=== PATIENT | female | born 1995 | race Caucasian/White ===

== ENCOUNTER 2023-11-22 20:28 | Emergency (ER) | payer OTHER, SELFPAY ==
[2023-11-22 20:34] VITALS: BP 120/75; PULSE 66; RESP 18; TEMP 36.7; O2SAT 99; BMI 23.1
--- NOTE | 2023-11-22 21:53 | ED_ITS ---
HPI - General Adult General Chief complaint: General Medical Stated complaint: Hit head at work, vision changes Time Seen by Provider: 11/22/23 21:50 Source: patient Mode of arrival: ambulatory Limitations: no limitations History of Present Illness ED Provider: Brinda Cordova PA-C HPI narrative: 27-year-old female presents for evaluation after hitting her head on a walk-in cooler earlier today. States that she hit her head around 1330 this afternoon, denies loss of consciousness. Then about 6-7 hours later was having some blurry vision that lasted about 20 minutes. Shortly after that she began having 'pins and needles' sensation in her fingers that spread to her hand and forearm, then had the same sensation around her mouth and left side of her jaw. All symptoms have since resolved. Denies headache, vision changes, nausea/vomiting, dizziness. MD complaint: Head injury Onset (ago): hour(s) Location: head Radiation: extremity Treatments prior to arrival: none Related Data Allergies Allergy/AdvReac Type Severity Reaction Status Date / Time No Known Allergies Allergy Verified 11/22/23 20:43 Review of Systems Constitutional: Constitutional: Reports no additional constitutional complaints, Denies chills, Denies fever(s) and Denies night sweats Eyes: Eyes: Reports no additional eye complaints, Denies blurry vision, Denies change in vision, Denies diplopia, Denies eye discharge, Denies loss of vision and Denies eye pain ENT: Denies dizziness Cardiovascular: Cardiovascular: Reports no additional cardiovascular complaints, Denies chest pain, Denies lightheadedness, Denies Loss of Consciousness and Denies dyspnea Respiratory: Respiratory: Reports no additional respiratory complaints and Denies dyspnea Gastrointestinal: Gastrointestinal: Reports no additional gastrointestinal complaints, Denies abdominal pain, Denies melena, Denies hematochezia, Denies change in bowel habits and Denies change in stool character Genitourinary: Genitourinary: Denies hematuria, Denies urinary frequency, Denies dysuria, Denies urinary incontinence, Denies urinary hesitancy and Denies urinary urgency Musculoskeletal: Musculoskeletal: Reports no additional musculoskeletal complaints, Denies numbness and Denies tingling Neurologic: Denies dizziness, Denies loss of vision, Denies numbness and Denies tingling Psychiatric: Psychiatric: Reports no additional psychiatric complaints Endocrine: Endocrine: Reports no additional endocrine complaints Hematologic/Lymphatic: Hematologic/Lymphatic: Reports no additional hematologic/lymphatic complaints Allergic/Immunologic: Allergic/Immunologic: Reports no additional allergic/immunologic complaints [facility] Past Medical History Attestation statement: The following information was validated with the patient. Source: old records reviewed and nursing notes reviewed Social History Social History Advance Directives: No Advance Directives Information Provided: No Physical Exam ED Vital Signs: Vital Signs - 24 hr 11/22/23 20:34 11/22/23 22:40 Temperature 98.0 F 98.0 F Pulse Rate 66 75 Respiratory Rate 18 16 Blood Pressure 120/75 115/79 Pulse Oximetry 99 97 Oxygen Delivery Method Room Air Room Air BMI result Body Mass Index 23.1 Const General: cooperative, no acute distress, alert and awake Nutritional Appearance: well nourished Orientation/consciousness: patient oriented x3 Limitations: no limitations HENMT Head: Yes normal to inspection and Yes atraumatic Ears: hearing grossly normal bilaterally and external ears normal General nose exam: Normal external nose present, no nasal discharge noted and no epistaxis Face and sinus: Yes normal facial exam, No abrasion and No laceration Mouth: Normal oral and palatal mucosa present, no drooling and no muffled voice Eyes General: appearance normal, both eyes and all related structures Periorbital: periorbital findings normal Eyelids: Yes eyelids normal Conjunctivae: conjunctivae normal Pupils: Equal, round and reactive pupils present EOM: EOMs intact bilaterally and No Nystagmus present Neck Neck: Yes normal visual inspection, Yes full ROM and Yes no lymphadenopathy Chest Chest palpation & inspection: normal inspection of the chest Resp Effort & Inspection: normal respiratory effort and able to speak in complete sentences GI Inspection: Yes normal to inspection Neuro General: patient oriented x3, moves all extremities, no focal motor deficits and CN's II-XI intact bilaterally Cranial nerves: Yes Equal, round and reactive pupils present, Yes Bilaterally intact EOM present, Yes Nystagmus not present, Yes Normal facial strength present and No Nystagmus present Cognition (Neuro): normal cognition Motor exam (neuro): 5/5 motor strength present throughout Sensory Exam: Normal double simultaneous stimulation for sensation Coordination: [id number] test normal Extrem General: Yes normal to inspection, Yes full ROM and Yes capillary refill normal Psych Appearance: grossly normal Mental Status: mental status grossly normal Affect: normal affect Attitude: cooperative Thought process: Normal thought process present Thought content: Normal thought content present Insight: Good insight present (Psych) Medical Decision Making Medical Decision Making MDM Narrative: Patient is a 27 year old assigned female at with no reported medical history presenting to the emergency department today after head injury. Patient's physical exam was unremarkable. I explained my physical exam findings to the patient. I answered all questions asked by the patient. stressed the importance of the patient taking her medication as prescribed. I stressed the importance of the patient following up with her primary care provider. I stressed the importance of the patient returning to the emergency department immediately if her symptoms were to worsen or if she were to develop any dizziness, shortness of breath, difficulty breathing, chest pain, blurry vision, loss of vision, nausea, vomiting, abdominal pain, fever, chills, back pain, or any other complaints. Patient verbalized agreement and understanding with this treatment plan and discharge. Differential Diagnosis Differential Diagnoses: The differential diagnosis associated with the p resentation includes Concussion Head injury Admission/Observation Consideration of admission/observation: Escalation of care including admission/observation considered Patient would have been admitted to the hospital had her clinical presentation warranted hospital admission. Tests considered The following testing was considered but not selected: I considered obtaining a CT scan of the head and neck however, the patient's mechanism of injury and clinical presentation did not warrant this. I discussed this with the patient who verbalized agreement and understanding. Discharge Plan Discharge Clinical Impression: Concussion Patient Disposition: Home, Self-Care Instructions: Concussion (ED) Additional Instructions: Follow up with your primary care provider. Return to the emergency department immediately if your symptoms worsen or if you develop any dizziness, shortness of breath, difficulty breathing, chest pain, blurry vision, loss of vision, nausea, vomiting, abdominal pain, fever, chills, back pain, or any other complaints. Referrals: [facility] Family Medicine [Provider Group] (Call to establish and follow up with a primary care provider. If you already have a primary care provider, please follow up with them.) [facility] [Provider Group] [facility] Primary [facility]i [facility] [Provider Group] Stand Alone Forms: Work/School Release Interventions: ED Discharge Assessment Last Done: 11/22/23 22:40 Discharge Date/Time: 11/22/23 22:41 Print Language: Greek
[2023-11-22 22:40] VITALS: BP 115/79; PULSE 75; RESP 16; TEMP 36.7; O2SAT 97
== END 2023-11-22 22:41 | disposition home or self-care (01) ==
PROVIDERS: Emergency Provider Internal Medicine
DX: S06.0X0A Concussion without loss of consciousness, initial encounter (principal); W22.8XXA Striking against or struck by other objects, initial encounter; Y93.9 Activity, unspecified; Y92.9 Unspecified place or not applicable; Y99.9 Unspecified external cause status; H53.8 Other visual disturbances; R20.2 Paresthesia of skin
CPT/HCPCS: 99282